=== PATIENT | female | born 1950 | race Caucasian/White ===

== ENCOUNTER 2017-07-28 15:08 | Outpatient (CLI) | payer MEDICARE ==
--- NOTE | 2017-07-28 15:41 | MMO ---
SCREENING MAMMOGRAM: COMPARISON: Reference is made to prior mammograms from September 2014 and September 2015. Examination is interpreted with the assistance of CAD. FINDINGS: There is heterogeneously dense breast parenchyma bilaterally which limits sensitivity of mammography and could obscure underlying pathology. There are benign-appearing calcifications involving each boy ast. Stable focal asymmetry of the upper outer left breast is present. No significant interval fernando ge. IMPRESSION: BI-RADS 2 - benign findings. Routine annual screening mammography is recommended. POS: PO[facility]
== END 2017-07-28 15:09 | disposition home or self-care (01) ==
LOC: SCSMAMMO 15:08
PROVIDERS: ATTEND Family Medicine
DX: Z12.31 Encounter for screening mammogram for malignant neoplasm of breast (principal)
CPT/HCPCS: 77067

== ENCOUNTER 2018-09-22 14:30 | Outpatient (CLI) | payer MEDICARE, OTHER ==
--- NOTE | 2018-10-02 13:19 | MMO ---
Bilateral MAMMO Bilat Screen [facility]. CLINICAL HISTORY: Patient is 68 years old and is seen for screening. The patient has no family history of breast cancer. The patient has no personal history of cancer. VIEWS: The views performed were: bilateral craniocaudal and bilateral mediolateral oblique. FILMS COMPARED: The present examination has been compared to prior imaging studies performed at [facility] on 09/27/2014, 09/30/2015 and 07/18/2017. This study has been interpreted with the assistance of computer-aided detection. MAMMOGRAM FINDINGS: There are scattered fibroglandular densities. Finding 1: There are multiple stable focal asymmetries seen in both breasts. Finding 2: There are stable benign appearing calcifications seen in both breasts. IMPRESSION: ALL ABOVE FINDINGS ARE BENIGN. A ROUTINE FOLLOW-UP MAMMOGRAM IN 1 YEAR IS RECOMMENDED. ACR BI-RADS Category 2 - Benign finding MAMMOGRAPHY NOTE: 1. A negative mammogram report should not delay a biopsy if a dominant of clinically suspicious mass is present. 2. Approximately 10% to 15% of breast cancers are not detected by mammography. 3. Adenosis and dense breasts may obscure an underlying neoplasm.
== END 2018-09-22 14:31 | disposition home or self-care (01) ==
LOC: SCSMAMMO 14:30
PROVIDERS: ATTEND Family Medicine
DX: Z12.31 Encounter for screening mammogram for malignant neoplasm of breast (principal)
CPT/HCPCS: 77067

== ENCOUNTER 2022-03-31 19:00 | Outpatient (CLI) | payer MEDICARE, OTHER | END 2022-03-31 19:01 | disposition home or self-care (01) | LOC: SLEEPLAB 19:00 | PROVIDERS: ATTEND Family Medicine | DX: G47.33 Obstructive sleep apnea (adult) (pediatric) (principal); F32.9 Major depressive disorder, single episode, unspecified; F41.9 Anxiety disorder, unspecified; R06.83 Snoring; I10 Essential (primary) hypertension; G47.10 Hypersomnia, unspecified; E66.9 Obesity, unspecified; Z68.33 Body mass index [BMI] 33.0-33.9, adult | CPT/HCPCS: 95811 ==